=== PATIENT | male | born 1990 ===

== ENCOUNTER 2022-05-05 10:11 | Emergency (ER) | payer OTHER ==
[~2022-05-05] VITALS: Ht 170.2 cm; Wt 90.9 kg
[2022-05-05 10:24] VITALS: BP 120/78; TEMP 98.1
[2022-05-05 11:34] VITALS: PULSE 95
== END 2022-05-05 11:34 | disposition home or self-care (01) ==
LOC: COL.ER 10:11
DX: S43.401A Unspecified sprain of right shoulder joint, initial encounter (principal); S10.91XA Abrasion of unspecified part of neck, initial encounter; F17.290 Nicotine dependence, other tobacco product, uncomplicated; X58.XXXA Exposure to other specified factors, initial encounter